=== PATIENT | female | born 1935 | race Caucasian/White ===

== ENCOUNTER 2016-07-25 16:44 | Emergency (ER) ==
[2016-07-25 16:49] VITALS: BP 124/73; TEMP 98.5; BMI 23.8
--- NOTE | 2016-07-25 17:23 | ED.PDOC ---
General ED Provider: Dr. SHARON RODRIGUEZ JR Chief Complaint: Chest Wall Injury/Pain Stated Complaint: patient states she lost her balance and fell. c/o pain to right anterior ribs. patient does not think that she hit anything, thinks she hurt herself when she twisted.[ End ]45 minutes feels constantine fell against her jewelry box 98.5 74 14 96% 124/73 10. cabg,stents x3, knee or. DEMENTIA , LOWER ELWHA. htn dm chol Time Seen by Physician: 17:22 Mode of Arrival: Walk-In Information Source: Patient Exam Limitations: No limitations Primary Care Provider: ASHTYN BERNAL Nursing and Triage Documentation Reviewed and Agree: No Review of Systems - Review Of Systems Constitutional: Reports: No symptoms Eyes: Reports: No symptoms Ears, Nose, Mouth, Throat: Reports: No symptoms Respiratory: Reports: No symptoms Cardiac: Reports: Chest pain (right lower ribs) GI: Reports: No symptoms : Reports: No symptoms Musculoskeletal: Reports: Other Skin: Reports: No symptoms Neurological: Reports: Cognitive dysfunction Endocrine: Reports: No symptoms Hematologic/Lymphatic: Reports: No symptoms All Other Systems: Other Past Medical History - Past Medical History Previously Healthy: No Endocrine: Reports: DM 2, Hypothyroid, Dyslipidemia Cardiovascular: Reports: Hypertension Respiratory: Reports: None Hematological: Reports: Unknown Gastrointestinal: Reports: Unknown, Other Genitourinary: Reports: None Neuro/Psych: Reports: None Musculoskeletal: Reports: Other Cancer: Reports: None Last Menstrual Period: n/a - Surgical History General Surgical History: Reports: CABG, Orthopedic (recent right knee), Unknown - Family History Family History: Reports: Unknown - Social History Smoking Status: Never smoker Hx Substance Use: No Alcohol Screening: None Physical Exam - Physical Exam Appearance: Well-appearing, Thin Pain Distress: Moderate Neck: Supple Respiratory: Airway patent Cardiovascular: RRR GI/: Soft Musculoskeletal: Normal strength, ROM intact, No edema, No calf tenderness ( right lower rib tenderness) Skin: Warm, Dry, Normal color Neurological: Sensation intact, Motor intact, Reflexes intact, Cranial nerves intact, Alert, Oriented Psychiatric: Affect appropriate, Mood appropriate Critical Care Note - Critical Care Note Total Time (mins): 0 Course - Course Orders, Labs, Meds: Orders Category Date Time Status RIBS, UNI W PA CHEST MIN 3V Stat RADS 02/04/17 17:23 Taken Vital Signs: Temp Pulse Resp BP Pulse Ox 07/25/16 16:45 98.5 F 74 14 124/73 96 Departure - Departure Time of Disposition: 18:30 Disposition: HOME SELF-CARE Discharge Problem: Chest wall pain Instructions: Rib Contusion (ED) Condition: Good Pt referred to PMD for follow-up: Yes Additional Instructions: follow up with PMD this week may call tomorrow for xray results may use home Binger for pain as prescribed Allergies/Adverse Reactions: Allergies cefprozil [From Cefzil] Adverse Reaction (Verified 07/25/16 16:47) ciprofloxacin [From Cipro] Adverse Reaction (Verified 07/25/16 16:47) ciprofloxacin HCl [From Cipro] Adverse Reaction (Verified 07/25/16 16:47) erythromycin base Adverse Reaction (Verified 07/25/16 16:47) levofloxacin [From Levaquin] Adverse Reaction (Verified 07/25/16 16:47) meloxicam Adverse Reaction (Verified 07/25/16 16:47) Penicillins Adverse Reaction (Verified 07/25/16 16:47) Sulfa (Sulfonamide Antibiotics) Adverse Reaction (Verified 07/25/16 16:47) Home Medications: Ambulatory Orders Aspirin [Aspirin Chewable] 325 mg PO DAILYWM 02/08/15 Buspirone HCl 10 mg PO BID 02/08/15 Clopidogrel Bisulfate [Plavix] 75 mg PO DAILY 02/08/15 Donepezil HCl [Aricept] 5 mg PO BEDTIME 02/08/15 Duloxetine HCl [Cymbalta] 60 mg PO DAILY 02/08/15 Glyburide/Metformin HCl [Glucovance 2.5-500 mg Tablet] 1 each PO DAILY 02/08/15 Isosorbide Mononitrate [Imdur] 60 mg PO DAILY 02/08/15 Levothyroxine Sodium [Synthroid] 75 mcg PO QDAC 02/08/15 Nebivolol HCl [Bystolic] 10 mg PO DAILY 02/08/15 Omeprazole [Prilosec] 20 mg PO QDAC 02/08/15 Pioglitazone HCl [Actos] 15 mg PO DAILY 02/08/15 Simvastatin [Zocor] 40 mg PO BEDTIME 02/08/15 Triamterene/Hydrochlorothiazid [Dyazide] 1 cap PO DAILY 02/08/15 Meclizine HCl [Antivert] 25 mg PO DAILY 03/07/15 Nitrofurantoin Monohyd/M-Cryst [Macrobid] 100 mg PO BEDTIME 03/07/15
--- NOTE | 2016-07-26 05:54 | DI ---
EXAM: PA chest and right rib series. HISTORY: Fall with right lateral rib pain. FINDINGS: The visualized bony structures are intact. There are multiple sternotomy wires. The car diac silhouette and pulmonary vasculature are within normal limits. The costophrenic angles are memo ar. No infiltrate or consolidation. No pneumothorax. There are calcified granulomas. Impression: No acute cardiopulmonary disease. Negative right rib series.
== END 2016-07-25 18:51 | disposition home or self-care (01) ==
LOC: ED 16:44
DX: S20.211A Contusion of right front wall of thorax, initial encounter (principal); R07.89 Other chest pain; W19.XXXA Unspecified fall, initial encounter
CPT/HCPCS: 99283

== ENCOUNTER 2024-05-01 13:10 | Inpatient (IN) ==
[2024-05-01 13:27] LABS: BASOPHILS % (AUTO) 0.3 % (0.0-3.0); HEMATOCRIT 37.5 % (37.0-47.0); HEMOGLOBIN 12.4 g/dl (12.0-16.0); IMMATURE GRANULOCYTE % (AUTO) 0.3 % (0.0-5.0); LYMPHOCYTES # (AUTO) 0.3 K/uL (0.60-3.4); LYMPHOCYTES % (AUTO) 4.9 (10.0-50.0); MEAN CORPUSCULAR HEMOGLOBIN 29.8 pg (27.0-31.0); MEAN CORPUSCULAR HGB CONC 33.1 (31.8-35.4); MEAN CORPUSCULAR VOLUME 90.1 fl (81.0-99.0); MONOCYTES # (AUTO) 0.9 K/uL (0.4-2.0); MONOCYTES % (AUTO) 15.2 (0-10); NEUTROPHILS # (AUTO) 4.6 K/ul (2.0-6.9); NEUTROPHILS % (AUTO) 79.3 % (42.2-75.2); PLATELET COUNT 116 10^3/uL (140-440); RED BLOOD COUNT 4.16 10^6/ul (4.20-5.40); WHITE BLOOD COUNT 5.86 K/ul (4.6-10.2)
--- NOTE | 2024-05-01 13:34 | ED.PDOC ---
General ED Provider: Dr. SHARON SKY MD Chief Complaint: Syncope Stated Complaint: Patient is an 88-year-old female that reported to the emergency department for 1 syncopal episode. Patient was brought from her assisted living facility via EMS to the emergency department. Patient was at a facilitated living center and EMS stated the patient had a short syncopal episode. They stated that this was witnessed by bystanders and they were able to help her down to the ground during her syncopal episode. They stated the patient did not fall or hit her head. This stated the patient was able to talk to them right after. They denied the patient having any pain. Patient denies anything making her symptoms worse or better. Patient denies any chest pain, shortness of breath, nausea, vomiting, diarrhea, dizziness, fever, headache, lymphadenopathy, sore throat, or any other acute symptoms not currently mentioned in HPI. Patient is alert. Patient has dementia at baseline. Patient's vital signs are stable. Time Seen by Provider: 05/01/24 13:12 Mode of Arrival: Walk-In Information Source: Patient and EMT Exam Limitations: No limitations Primary Care Provider: ASHTYN BERNAL Nursing and Triage Documentation Reviewed and Agree: Yes Does Patient Take Opioids?: No Is Patient Opioid Naive?: No What is Opioid Naive?: *Opioid Naive implies the patient is not already taking opioids or not chronically receiving opioids on a daily basis. *PRN dosing is not "usually" associated with tolerance. *Patients are at higher risk of over-sedation and aspiration. Is Patient Opioid Tolerant?: No What is Opioid Tolerant?: *Opioid Tolerance implies less than the expected response to an opioid. *Acquired tolerance is defined by the patient taking 60mg of oral morphine daily (or equianalgesic dose of another opioid) for 1 week or more. *Often associated with chronic pain. *May take more than usual dose to achieve desired pain control. Review of Systems Review Of Systems Constitutional: Reports Weakness Eyes: Reports No symptoms Ears, Nose, Mouth, Throat: Reports No symptoms Respiratory: Denies Cough or Shortness of Breath Cardiac: Denies Chest pain GI: Reports No symptoms; Denies Diarrhea, Nausea or Vomiting : Reports No symptoms Musculoskeletal: Reports No symptoms Skin: Reports No symptoms Neurological: Reports Other (syncopal episode x1) Endocrine: Reports No symptoms Hematologic/Lymphatic: Reports No symptoms All Other Systems: Reviewed and Negative PFSH Medical History Hypertension for years I10 - Essential (primary) hypertension (ICD-10) Hypothyroidism for years E03.9 - Hypothyroidism, unspecified (ICD-10) Depression for years F32.9 - Major depressive disorder, single episode, unspecified (ICD-10) Diabetes mellitus age 40's E11.9 - Type 2 diabetes mellitus without complications (ICD-10) Family History Mother Type 2 diabetes mellitus, Onset Age: 60 Surgical History History of joint surgery both knees 4 years ago Z98.890 - Other specified postprocedural states (ICD-10) Status post hysterectomy yeras ago Z90.710 - Acquired absence of both cervix and uterus (ICD-10) Female Reproductive History Menstrual Hx Hysterectomy: Yes Hx Tubal Ligation: No Physical Exam Physical Exam Appearance: Reports No pain distress and Well-nourished Ill-appearing: None Pain Distress: None Eyes: Reports TRINH, EOMI and Conjunctiva clear ENT: Reports Ears normal, Nose normal and Oropharynx normal Neck: Supple Respiratory: Reports Airway patent, Breath sounds clear, Breath sounds equal and Respirations nonlabored Cardiovascular: Reports RRR, Pulses normal, No rub and No murmur GI/: Reports Soft, Nontender, No masses, Bowel sounds normal and No Organomegaly Musculoskeletal: Reports Normal strength, ROM intact, No edema and No calf tenderness Skin: Reports Warm, Dry and Normal color Neurological: Reports Sensation intact, Motor intact, Cranial nerves intact, Alert and Other (Patient has dementia at baseline. She was able to tell us where she was at. Patient was alert.) Psychiatric: Reports Affect appropriate and Mood appropriate Course Course 05/01/24 13:20 05/01/24 13:20 Orders, Labs, Meds: Lab Review 05/01/24 05/01/24 13:20 13:30 WBC 5.86 RBC 4.16 L Hgb 12.4 Hct 37.5 MCV 90.1 MCH 29.8 MCHC 33.1 RDW Coeff of Anh 14.0 Plt Count 116 L Immature Gran % (Auto) 0.3 Neut % (Auto) 79.3 H Lymph % (Auto) 4.9 L [place] % (Auto) 15.2 H Eos % (Auto) 0.0 Baso % (Auto) 0.3 Neut # (Auto) 4.6 Lymph # (Auto) 0.3 L [place] # (Auto) 0.9 Eos # (Auto) 0.0 Baso # (Auto) 0.0 Immature Gran # (Auto) 0.0 Sodium 132.4 L Potassium 3.29 L Chloride 95.2 L Carbon Dioxide 27.7 Anion Gap 12.79 BUN 29.6 H Creatinine 1.26 Estimated GFR (MDRD) 40.00 BUN/Creatinine Ratio 23.49 Glucose 164.2 H Lactic Acid 2.30 H Calcium 8.00 L Total Bilirubin 0.48 AST 31.8 ALT 20.9 Alkaline Phosphatase 88.9 Troponin I < 0.012 NT-Pro-B Natriuret Pep 1570 H Total Protein 6.48 Albumin 3.57 Globulin 2.91 Albumin/Globulin Ratio 1.22 Influ A Molecular Assay Negative by naat Influ B Molecular Assay Negative by naat SARS CoV-2 RNA Rapid JAYA Negative Orders Category Date Time Status EKG-(ED ONLY) Stat CARDIO 05/01/24 13:12 Completed ED CHIEF COMPLIANCE OFFICER APPLIED .ONCE EMERGENCY 05/01/24 13:12 Active Rodriguez [ED CATHETER INSERTION AND CARE] .ONCE EMERGENCY 05/01/24 13:59 Active Orthostatic [ED ORTHOSTATIC VITAL SIGNS] .ONCE EMERGENCY 05/01/24 14:03 Active CBC W/ AUTO DIFF Stat LAB 05/01/24 13:20 Completed COMPREHENSIVE METABOLIC PANEL Stat LAB 05/01/24 13:20 Completed FLU A/B MOLECULAR Stat LAB 05/01/24 13:30 Completed LACTIC ACID Stat LAB 05/01/24 13:20 Completed NT-PROBNP(ED) Stat LAB 05/01/24 13:20 Completed SARS COV-2 RNA RAPID JAYA Stat LAB 05/01/24 13:30 Completed TROPONIN I Stat LAB 05/01/24 13:20 Completed URINALYSIS C & S IF INDICATED Stat LAB 05/01/24 13:39 Uncollected Gentamicin Sulfate 310 mg Meds 05/01/24 13:53 Active 0.9 % Sodium Chloride [Sodium Chloride 100Ml] 100 ml IV ONCE Potassium Chloride [Potassium Chloride 20 Meq/100 ml Meds 05/01/24 13:43 Active Premix] 20 meq in 100 ml IV ONCE Sodium Chloride 0.9% [Sodium Chloride] 1,000 ml Meds 05/01/24 13:43 Discontinued IV BOLUS Sodium Chloride 0.9% [Sodium Chloride] 1,000 ml Meds 05/01/24 13:54 Active IV BOLUS CHEST, 1V AP ONLY Stat RADS 05/01/24 13:[address] HEAD W/O CONTRAST Stat RADS 05/01/24 13:13 Taken Medications Generic Name Dose Route Start Last Admin Trade Name Freq PRN Reason Stop Dose Admin Potassium Chloride 20 meq in 100 mls @ 50 mls/hr 05/01/24 13:43 Potassium Chloride 20 Meq/100 Ml Premix IV 05/01/24 15:42 ONCE ONE Gentamicin Sulfate 310 mg/ 107.75 mls @ 83 mls/hr 05/01/24 13:53 Sodium Chloride IV 05/01/24 15:10 ONCE ONE Sodium Chloride 1,000 mls @ 250 mls/hr 05/01/24 13:54 Sodium Chloride IV 05/01/24 17:42 BOLUS ONE Discontinued Medications Generic Name Dose Route Start Last Admin Trade Name Freq PRN Reason Stop Dose Admin Sodium Chloride 1,000 mls @ 1,000 mls/hr 05/01/24 13:43 Sodium Chloride IV 05/01/24 14:42 BOLUS ONE Vital Signs: Temp Pulse Resp BP Pulse Ox 05/01/24 13:12 98.6 F 67 20 103/53 L 96 SHERRILL Risk Score SHERRILL Risk Score: Risk Score Odds of by 30D 0 0.1 (0.1-0.2) 1 0.3 (0.2-0.3) 2 0.4 (0.3-0.5) 3 0.7 (0.6-0.9) 4 1.2 (1.0-1.5) 5 2.2 (1.9-2.6) 6 3.0 (2.5-3.6) 7 4.8 (3.8-6.1) Physician Progress Note: Patient is an 88-year-old female that reported to the emergency department for 1 syncopal episode. Patient was brought from her assisted living facility via EMS to the emergency department. Patient was at a facilitated living center and EMS stated the patient had a short syncopal episode. They stated that this was witnessed by bystanders and they were able to help her down to the ground during her syncopal episode. They stated the patient did not fall or hit her head. This stated the patient was able to talk to them right after. They denied the patient having any pain. Patient denies anything making her symptoms worse or better. Patient denies any chest pain, shortness of breath, nausea, vomiting, diarrhea, dizziness, fever, headache, lymphadenopathy, sore throat, or any other acute symptoms not currently mentioned in HPI. Patient is alert. Patient has dementia at baseline. Patient's vital signs are stable. -Looking back at this patient's record it appears patient was just here on 04/29/2024 and was diagnosed with a UTI. Patient was sent home with a prescription for nitrofurantoin and told to follow-up with her primary care physician in the next 4 to 5 days. However due to patient's current condition patient was brought to the emergency department for syncopal episode. -Will order CT of head to rule out intracranial reasoning for syncopal episode. -Will order an EKG and CXR. -Will order baseline labs. Will order UA. -EKG shows normal sinus rhythm with a rate of 64 bpm. NC intervals 138 ms, QRS duration 76 ms, QTc 460 ms. Left axis deviation. No acute ST elevations noted. This was interpreted by the ER physician. -Patient does not have tachycardia however she is on a beta-gilmar and it appears she has a high neutrophil count with a lactic acidosis (2.3. -Will give the patient IV normal saline 1 L bolus for dehydration and give the patient IV gentamicin 310 mg for the UTI. -Will treat the patient's hypokalemia with IV potassium 20 mEq. -Troponin is negative. -Chest x-ray shows no acute cardiopulmonary disease. This was interpreted by the ER physician. -CT of the head shows no acute intercranial bleeding or pathology. -Will contact hospitalist here at [facility] for admission for complicated UTI with outpatient failure of treatment. Also diagnosis of syncopal episode. -Will place a Rodriguez catheter and the patient as it is unsafe for the patient to get up and move around while in the hospital. -([id number]) spoke to hospitalist, RUIZ Boston, at [facility] and discussed the patient's syncopal episode with UTI that is being treated with antibiotics. Of given the current treatment of IV gentamicin 5 mg/kg dose once in the ER and 20 mEq of potassium for hypokalemia. I also discussed the volume of fluids that we have given thus far. She requested that we do orthostatic vital signs before the patient got too much fluids however she was agreeable to accept this patient for observation at the current time. Patient stable at time of admissions for observation. Discharge Plan Discharge Patient Disposition: PLACED OBSERVATION Discharge Problem: Generalized weakness, Complicated urinary tract infection Syncope Qualifiers: Syncope type: unspecified Qualified Code(s): R55 - Syncope and collapse Dementia Qualifiers: Dementia type: unspecified type Dementia severity: unspecified severity D ementia behavioral or psychological symptom: unspecified whether behavioral, psychotic, or mood disturbance or anxiety Qualified Code(s): F03.90 - Unspecified dementia, unspecified severity, without behavioral disturbance, psychotic disturbance, mood disturbance, and anxiety Did you review [place] [employer] for ALL controlled substances?: Not Applicable ED Provider: SHARON SKY Condition: Stable
[2024-05-01 13:39] LABS: ALANINE AMINOTRANSFERASE 20.9 U/L (0-35); ALBUMIN 3.57 g/dL (3.5-5.0); ALKALINE PHOSPHATASE 88.9 U/L (53-141); ASPARTATE AMINO TRANSFERASE 31.8 U/L (14-36); BILIRUBIN,TOTAL 0.48 mg/dL (0.2-1.3); BLOOD UREA NITROGEN 29.6 mg/dL (7-17); CARBON DIOXIDE 27.7 mmol/L (22-30.0); CHLORIDE 95.2 mmol/L (98-107); CREATININE 1.26 mg/dL (0.60-1.30); GLUCOSE 164.2 mg/dL (74-106); POTASSIUM 3.29 mmol/L (3.5-5.1); SODIUM 132.4 mmol/L (134.5-145); TOTAL PROTEIN 6.48 g/dL (6.3-8.2)
[2024-05-01] MEDS ORDERED: MAXIPIME 1 GM VIAL 1 GM in SODIUM CHLORIDE 50 ML IV ONE (13:43)
[2024-05-01 13:49] LABS: MOLECULAR FLU A NEGATIVE BY NAAT (NEGATIVE); MOLECULAR FLU B NEGATIVE BY NAAT (NEGATIVE); SARS COV-2 RNA RAPID NAAT NEGATIVE (NEGATIVE)
[2024-05-01 13:51] LABS: TROPONIN I < 0.012 ng/ml (0.0000-0.120)
[2024-05-01] MEDS: SODIUM CHLORIDE IV ONE (14:06)
[2024-05-01] MEDS: GENTAMICIN SULFATE IV ONE (14:06)
[2024-05-01] MEDS: SODIUM CHLORIDE 1,000 ML IV ONE ×2 (14:07→14:27)
[2024-05-01 14:21] LABS: BILIRUBIN,URINE 1+ (NEGATIVE); CLARITY,URINE Clear (CLEAR); COLOR,URINE Dark (YELLOW); GLUCOSE, URINE (UA) Negative (NEGATIVE); KETONES,URINE 1+ (NEGATIVE); LEUKOCYTE ESTERASE ,URINE Negative (NEGATIVE); NITRITE,URINE Negative (NEGATIVE); PH,URINE 5.5 (5-9); PROTEIN,URINE 2+ (NEGATIVE); URINE, BLOOD 1+ (NEGATIVE); UROBILINOGEN,URINE 0.2 (0.2)
[2024-05-01] MEDS: POTASSIUM CHLORIDE 20 MEQ/100 ML PREMIX 20 MEQ/100 ML BAG IV ONE (14:27)
[2024-05-01 14:29] LABS: URINE WBC, MICROSCOPIC 0-2 (0-2)
[2024-05-01 14:30] LABS: AMORPHOUS SEDIMENT,UR TRACE (NOT PRESENT); BACTERIA,URINE 1+ (NOT PRESENT); HYALINE CASTS, URINE 0-2 (NOT PRESENT); MUCUS,URINE TRACE (NOT PRESENT)
--- NOTE | 2024-05-01 14:33 | CT ---
EXAMINATION: HEAD CT WITHOUT CONTRAST HISTORY: Syncope TECHNIQUE: Noncontrast CT of the brain was performed with images acquired from skull base to vertex. Sagittal and coronal reformatted images were provided. CT dose reduction techniques performed: Yes. COMPARISON: CT head 10/29/2023 FINDINGS: No hemorrhage, mass, or acute infarction. No skull fracture.Chronic microvascular disease and brain a trophy. Paranasal sinuses and mastoid air cells clear. IMPRESSION: No acute intracranial abnormality. All CT scans are performed using dose optimization techniques as appropriate to the performed exam an d include at least one of the following: Automated exposure control, adjustment of the mA and/or kV according t o size, and the use of iterative reconstruction technique.
--- NOTE | 2024-05-01 14:41 | DI ---
EXAM: CHEST RADIOGRAPH TECHNIQUE: Single frontal chest radiograph. HISTORY: Syncope. COMPARISON: 10/29/2023. FINDINGS: Lungs/Pleura: Slight interstitial prominence. Mild streaky markings in the left lung base may be due to scarring or atelectasis. No sizable effusion or focal infiltrate. Heart: The heart size is normal. Bones: Bones are osteopenic. Other: Median sternotomy. Note is again made of breakage of the upper 2 wires. Cholecystectomy. IMPRESSION: 1. Chronic changes.
[2024-05-01 15:51] VITALS: BMI 25.0
[2024-05-01] MEDS: SODIUM CHLORIDE 1,000 ML IV SCH (16:13)
[2024-05-01] MEDS ORDERED: ZOFRAN 4 MG/2 ML IVP PRN (16:41)
[2024-05-01] MEDS ORDERED: ANTIVERT PO PRN (16:43)
[2024-05-01] MEDS ORDERED: NON-FORMULARY MEDICATION (Cetirizine [24hour Allergy] 10 mg tablet) PO SCH (16:45)
[2024-05-01] MEDS: CARAFATE PO SCH (17:28)
[2024-05-01] MEDS: TYLENOL PO PRN (17:53)
[2024-05-01] MEDS: AZACTAM 1 GM in SODIUM CHLORIDE 50 ML IV SCH (18:18)
[2024-05-01] MEDS: MAGNESIUM SULFATE 1 GM/100 ML D5W 1 GM/100 ML BAG IV ONE (19:10)
[2024-05-01] MEDS: ULTRAM PO SCH (20:22)
[2024-05-01] MEDS: SEROQUEL PO SCH (20:22)
[2024-05-01] MEDS: ZOCOR PO SCH (20:22)
[2024-05-01] MEDS: PROTONIX PO SCH (20:22)
[2024-05-01] MEDS: COLESTID PO SCH (20:22)
[2024-05-01] MEDS: HUMALOG (10 ML VIAL) SUBCUT PRN (20:51)
[2024-05-02 05:05] LABS: HEMATOCRIT 35.6 % (37.0-47.0); HEMOGLOBIN 11.9 g/dl (12.0-16.0); IMMATURE GRANULOCYTE % (AUTO) 0.3 % (0.0-5.0); LYMPHOCYTES # (AUTO) 0.3 K/uL (0.60-3.4); LYMPHOCYTES % (AUTO) 5.4 (10.0-50.0); MEAN CORPUSCULAR HEMOGLOBIN 29.3 pg (27.0-31.0); MEAN CORPUSCULAR HGB CONC 33.4 (31.8-35.4); MEAN CORPUSCULAR VOLUME 87.7 fl (81.0-99.0); MONOCYTES # (AUTO) 1.2 K/uL (0.4-2.0); MONOCYTES % (AUTO) 18.9 (0-10); NEUTROPHILS # (AUTO) 4.7 K/ul (2.0-6.9); NEUTROPHILS % (AUTO) 75.4 % (42.2-75.2); PLATELET COUNT 118 10^3/uL (140-440); RED BLOOD COUNT 4.06 10^6/ul (4.20-5.40); WHITE BLOOD COUNT 6.29 K/ul (4.6-10.2)
[2024-05-02] MEDS: SYNTHROID PO SCH (05:05)
[2024-05-02 05:24] LABS: ALANINE AMINOTRANSFERASE 18.2 U/L (0-35); ALBUMIN 3.29 g/dL (3.5-5.0); ALKALINE PHOSPHATASE 81.4 U/L (53-141); ASPARTATE AMINO TRANSFERASE 34.5 U/L (14-36); BILIRUBIN,TOTAL 0.48 mg/dL (0.2-1.3); BLOOD UREA NITROGEN 19.4 mg/dL (7-17); CALCIUM 7.9 mg/dL (8.4-10.2); CARBON DIOXIDE 28.2 mmol/L (22-30.0); CHLORIDE 95.8 mmol/L (98-107); CREATININE 0.88 mg/dL (0.60-1.30); GLUCOSE 141.5 mg/dL (74-106); POTASSIUM 3.09 mmol/L (3.5-5.1); SODIUM 129.6 mmol/L (134.5-145); TOTAL PROTEIN 6.21 g/dL (6.3-8.2)
[2024-05-02] MEDS: INVANZ 1 GM in SODIUM CHLORIDE 50 ML IV SCH (08:50)
[2024-05-02] MEDS ORDERED: FERROUS SULFATE PO SCH (09:00)
[2024-05-02] MEDS ORDERED: DYAZIDE PO SCH (09:00)
--- NOTE | 2024-05-02 09:16 | PCM ---
Date of Service Date Seen by Provider: 05/02/24 Time Seen by Provider: 08:30 Admit Day/Time Admission Date: 05/01/24 Admission Time: 14:08 Reason for Admission Chief Complaint: COMPLICATED UTI, SYNCOPE Hospital Provider Hospital Provider: FORTINO JUARES PA-C, [facility] Primary Care Physician Primary Care Physician: ASHTYN BERNAL History of Present Illness History of Present Illness: Patient is a 88 year old from [facility] with pmhx of hypertension, dementia, CABG, hypothyroidism, GERD, hyperlipidemia who presented for witnessed syncopal episode. No seizurelike activity reported. She was assisted down to the floor and did not obtain any injuries reportedly. No n/v, incontinence noted. Patient was seen in the ER on 04/29 and diagnosed with UTI, discharged home on macrobid. Patient has many allergies to antibiotics. In the ER this visit patient's cxr and ct head were unremarkable. Labs revealed low potassium and sodium. Urine culture from recent visit was still pending but growing gram negative organisms. Patient admitted to [facility] for syncope, UTI. Patient's urine culture from 04/29 resulted today in ESBL positive e coli. She is oriented to self only. She was able to eat some breakfast today. Per nursing report, family is requesting longterm placement. ROS limited due to patient's dementia. Case Discussed With Case Discussed With: Patient's case was discussed with the ER Physicians, Dr. Zamora. [facility] Medical History Hypertension for years I10 - Essential (primary) hypertension (ICD-10) Hypothyroidism for years E03.9 - Hypothyroidism, unspecified (ICD-10) Depression for years F32.9 - Major depressive disorder, single episode, unspecified (ICD-10) Diabetes mellitus age 40's E11.9 - Type 2 diabetes mellitus without complications (ICD-10) Surgical History History of joint surgery both knees 4 years ago Z98.890 - Other specified postprocedural states (ICD-10) Status post hysterectomy yeras ago Z90.710 - Acquired absence of both cervix and uterus (ICD-10) Family History Mother Type 2 diabetes mellitus, Onset Age: 60 Allergies Allergies Allergy/AdvReac Type Severity Reaction Status Date / Time cefprozil (From Cefzil) AdvReac Unknown Verified 05/01/24 13:35 ciprofloxacin (From Cipro) AdvReac Unknown Verified 05/01/24 13:35 ciprofloxacin HCl (From AdvReac Unknown Verified 05/01/24 13:35 Cipro) erythromycin base AdvReac Unknown Verified 05/01/24 13:35 levofloxacin (From Levaquin) AdvReac Unknown Verified 05/01/24 13:35 meloxicam AdvReac Unknown Verified 05/01/24 13:35 Penicillins AdvReac Unknown Verified 05/01/24 13:35 Sulfa (Sulfonamide AdvReac Unknown Verified 05/01/24 13:35 Antibiotics) Current Medications Home Medications duloxetine 60 mg capsule,delayed release (Cymbalta) 60 mg PO DAILY 02/08/15 [History Confirmed 05/01/24 Last Taken Unknown] isosorbide mononitrate 30 mg tablet,extended release 24 hr 30 mg PO DAILY 02/08/15 [History Confirmed 05/01/24 Last Taken Unknown] levothyroxine 75 mcg tablet (Synthroid) 75 mcg PO QDAC 02/08/15 [History Confirmed 05/01/24 Last Taken Unknown] simvastatin 40 mg tablet 40 mg PO BEDTIME 02/08/15 [History Confirmed 05/01/24 Last Taken Unknown] triamterene 37.5 mg-hydrochlorothiazide 25 mg capsule 1 cap PO DAILY 02/08/15 [History Confirmed 05/01/24 Last Taken Unknown] donepezil 5 mg tablet (Aricept) 5 mg PO QDAY 01/08/21 [History Confirmed 05/01/24 Last Taken Unknown] acetaminophen 500 mg tablet (Tylenol Extra Strength) 1,000 mg PO TID PRN pain 10/27/23 [History Confirmed 05/01/24 Last Taken Unknown] alendronate 70 mg tablet (Fosamax) 70 mg PO WEEKLY 10/27/23 [History Confirmed 04/29/24 Last Taken Unknown] carbamide peroxide 6.5 % ear drops (Clearcanal Earwax Softener) 5 drp BOTHEARS DAILY PRN wax 10/27/23 [History Confirmed 05/01/24 Last Taken Unknown] carvedilol 6.25 mg tablet 6.25 mg PO ONCE 10/27/23 [History Confirmed 05/01/24 Last Taken Unknown] colestipol 1 gram tablet (Colestid) 1 g PO BID 10/27/23 [History Confirmed 05/01/24 Last Taken Unknown] docusate sodium 100 mg capsule (Col-Rite) 100 mg PO DAILY 10/27/23 [History Confirmed 05/01/24 Last Taken Unknown] ferrous sulfate 325 mg (65 mg iron) tablet 325 mg PO DAILY 10/27/23 [History Confirmed 05/01/24 Last Taken Unknown] fluticasone propionate 50 mcg/actuation nasal spray,suspension (24 Hour Allergy Relief) 2 spray intranasal ONCE 10/27/23 [History Confirmed 05/01/24 Last Taken Unknown] meclizine 25 mg tablet 25 mg PO DAILY PRN dizziness #30 tabs 10/27/23 [Rx Confirmed 05/01/24 Last Taken Unknown] pantoprazole 40 mg tablet,delayed release 40 mg PO BID 10/27/23 [History Confirmed 05/01/24 Last Taken Unknown] potassium chloride 10 mEq tablet,extended release 10 meq PO DAILY 10/27/23 [History Confirmed 05/01/24 Last Taken Unknown] psyllium husk (aspartame) 3.4 gram oral powder packet (Daily Fiber (psyllium- aspartame)) 1 packet PO DAILY 10/27/23 [History Confirmed 05/01/24 Last Taken Unknown] quetiapine 50 mg tablet 50 mg PO BEDTIME 10/27/23 [History Confirmed 05/01/24 Last Taken Unknown] tramadol 50 mg tablet 50 mg PO BID 10/27/23 [History Confirmed 05/01/24 Last Taken Unknown] metformin 500 mg tablet 500 mg PO 2XD 04/29/24 [History Confirmed 05/01/24 Last Taken Unknown] nitrofurantoin monohydrate/macrocrystals 100 mg capsule (Macrobid) 100 mg PO BID #14 caps 04/29/24 [Rx Confirmed 05/01/24 Last Taken Unknown] bupropion HCl 150 mg 24 hr tablet, extended release 150 mg PO DAILY 05/01/24 [History Confirmed 05/01/24 Last Taken Unknown] sucralfate 100 mg/mL oral suspension 10 ml PO Q6H PRN indigestion 05/01/24 [History Confirmed 05/01/24 Last Taken Unknown] Home Acetaminophen (Acetaminophen 325 Mg Tablet) 650 mg PO Q4H PRN PRN Reason: Mild Pain Last Admin: 05/02/24 12:03 Dose: 650 mg Bupropion HCl (Bupropion Hcl 150 Mg Tab.Er.24h) 150 mg PO DAILY [facility] Last Admin: 05/02/24 09:30 Dose: 150 mg Carvedilol (Carvedilol 6.25 Mg Tablet) 6.25 mg PO DAILYWM2 [facility] Last Admin: 05/02/24 09:19 Dose: 6.25 mg Colestipol HCl (Colestipol Hcl 1 Gm Tablet) 1 gm PO BID [facility] Last Admin: 05/02/24 09:29 Dose: 1 gm Docusate Sodium (Docusate Sodium 100 Mg Capsule) 100 mg PO DAILY [facility] Last Admin: 05/02/24 09:31 Dose: 100 mg Donepezil HCl (Donepezil Hcl 10 Mg Tablet) 5 mg PO DAILY [facility] Last Admin: 05/02/24 09:32 Dose: 5 mg Duloxetine HCl (Duloxetine Hcl 30 Mg Capsule.) 60 mg PO DAILY [facility] Last Admin: 05/02/24 09:30 Dose: 60 mg Ferrous Sulfate (Ferrous Sulfate 324 Mg Tablet.Dr) 324 mg PO DAILY [facility] Last Admin: 05/02/24 10:19 Dose: 324 mg Sodium Chloride (Sodium Chloride) 1,000 mls @ 75 mls/hr IV .[id number] [facility] Last Admin: 05/02/24 08:05 Dose: 75 mls/hr Ertapenem 1 gm/ Sodium (Chloride) 50 mls @ 100 mls/hr IV DAILY [facility] Stop: 05/05/24 08:59 Last Admin: 05/02/24 08:50 Dose: 100 mls/hr Insulin Human Lispro (Insulin Lispro 100 Unit/Ml (10 Ml Vial)) 0 unit SUBCUT PRN PRN; Protocol PRN Reason: Hyperglycemia Last Admin: 05/01/24 20:51 Dose: 2 unit Isosorbide Mononitrate (Isosorbide Mononitrate 30 Mg Tab.Er.24h) 30 mg PO DAILY [facility] Last Admin: 05/02/24 09:31 Dose: 30 mg Levothyroxine Sodium (Levothyroxine Sodium 75 Mcg Tablet) 75 mcg PO QDAC2 [facility] Last Admin: 05/02/24 05:05 Dose: 75 mcg Meclizine HCl (Meclizine Hcl 25 Mg Tablet) 25 mg PO DAILY PRN PRN Reason: Dizziness Ondansetron HCl (Ondansetron Hcl/Pf 4 Mg/2 Ml Sdv) 4 mg IVP Q6H PRN PRN Reason: Nausea / Vomiting Pantoprazole Sodium (Pantoprazole Sodium 40 Mg Tablet.Dr) 40 mg PO BIDAC2 [facility] Last Admin: 05/02/24 09:21 Dose: 40 mg Pioglitazone HCl (Pioglitazone Hcl 15 Mg Tablet) 15 mg PO DAILY [facility] Last Admin: 05/02/24 09:31 Dose: 15 mg Quetiapine Fumarate (Quetiapine Fumarate 25 Mg Tablet) 50 mg PO BEDTIME [facility] Last Admin: 05/01/24 20:22 Dose: 50 mg Simvastatin (Simvastatin 40 Mg Tablet) 40 mg PO BEDTIME [facility] Last Admin: 05/01/24 20:22 Dose: 40 mg Sucralfate (Sucralfate Susp 1 Gm/10 Ml Cup) 1 gm PO Q6H [facility] Last Admin: 05/02/24 11:09 Dose: 1 gm Tramadol HCl (Tramadol Hcl 50 Mg Tablet) 50 mg PO BID [facility] Last Admin: 05/02/24 09:32 Dose: 50 mg Discontinued Medications Sodium Chloride (Sodium Chloride) 1,000 mls @ 1,000 mls/hr IV BOLUS ONE Stop: 05/01/24 14:42 Last Admin: 05/01/24 14:27 Dose: Not Given Potassium Chloride (Potassium Chloride 20 Meq/100 Ml Premix) 20 meq in 100 mls @ 50 mls/hr IV ONCE ONE Stop: 05/01/24 15:42 Last Admin: 05/01/24 14:27 Dose: 50 mls/hr Gentamicin Sulfate 310 mg/ (Sodium Chloride) 107.75 mls @ 83 mls/hr IV ONCE ONE Stop: 05/01/24 15:10 Last Admin: 05/01/24 14:41 Dose: Not Given Sodium Chloride (Sodium Chloride) 1,000 mls @ 250 mls/hr IV BOLUS ONE Stop: 05/01/24 17:42 Last Admin: 05/01/24 14:07 Dose: 250 mls/hr Aztreonam 1 gm/ Sodium (Chloride) 50 mls @ 75 mls/hr IV Q8HR [place] Stop: 05/04/24 15:59 Last Admin: 05/02/24 05:05 Dose: 75 mls/hr Magnesium Sulfate/Dextrose (Magnesium Sulfate 1 Gm/100 Ml D5w) 1 gm in 100 mls @ 100 mls/hr IV ONCE ONE Stop: 05/01/24 18:01 Last Admin: 05/01/24 19:10 Dose: 100 mls/hr Non-Formulary Medication (Cetirizine [24hour Allergy]) 10 mg PO ONCE [place] Pantoprazole Sodium (Pantoprazole Sodium 40 Mg Tablet.Dr) 40 mg PO BID [place] Last Admin: 05/01/24 20:22 Dose: 40 mg Potassium Chloride (Potassium Chloride 20 Meq Tab) 40 meq PO ONCE ONE Stop: 05/02/24 08:07 Last Admin: 05/02/24 09:20 Dose: 40 meq Opioid Naive vs. Tolerant Does Patient Take Opioids?: No Is Patient Opioid Naive?: Yes What is Opioid Naive?: *Opioid Naive implies the patient is not already taking opioids or not chronically receiving opioids on a daily basis. *PRN dosing is not "usually" associated with tolerance. *Patients are at higher risk of over-sedation and aspiration. Is Patient Opioid Tolerant?: No What is Opioid Tolerant?: *Opioid Tolerance implies less than the expected response to an opioid. *Acquired tolerance is defined by the patient taking 60mg of oral morphine daily (or equianalgesic dose of another opioid) for 1 week or more. *Often associated with chronic pain. *May take more than usual dose to achieve desired pain control. Review of Systems Cardiovascular: Denies Chest pain Respiratory: Denies Shortness of air Gastrointestinal: Denies Vomiting or Abdominal pain Physical examination Most Recent Vital Signs: Most Recent Vital Signs Temperature 98.8 F 05/02/24 05:03 Temperature Source Temporal Artery Scan 05/02/24 05:03 Temperature Source Infrared 05/01/24 13:12 Pulse Rate 96 05/02/24 07:45 Respiratory Rate 20 05/02/24 07:45 Blood Pressure 125/65 05/02/24 05:03 Blood Pressure Mean 85 05/02/24 05:03 Blood Pressure Right Arm 130/60 05/01/24 15:18 Blood Pressure Location Left Arm 05/02/24 05:03 Blood Pressure Position Supine 05/02/24 05:03 O2 Sat by Pulse Oximetry 91 L 05/02/24 05:03 Oxygen Delivery Method Room Air 05/02/24 09:00 Height 5 ft 3 in 05/01/24 15:18 Weight 64 kg 05/01/24 15:18 Telemetry Type Remote Telemetry 05/02/24 06:57 Telemetry Monitoring Continues 05/02/24 06:57 Telemetry Heart Rate 95 05/02/24 06:57 EKG MI Interval 0.14 05/02/24 06:57 EKG QRS Interval 0.06 05/02/24 06:57 Telemetry Strip Reading NSR 05/02/24 06:57 Appearance: Positive No Apparent Distress and Other (+Awakes easily, oriented to person only. Follows commands but requires a lot of direction and repetition of command) Skin: Positive [place] and Warm; Negative Rashes HEENT: Positive Normocephalic and Atraumatic Neck: Positive Supple and Midline Trachea Chest/Lungs: Positive Clear to Auscultation Bilaterally; Negative Rales, Rhonci or Wheezes Heart: Positive RRR GI/: Positive Soft, Nontender, Bowel Sounds Normal and No Distention Extremities: Negative Edema Neurological: Positive Cranial Nerves Intact, Alert and Disorinted Labs This Visit Labs This Visit: Labs This Visit 05/01/24 05/01/24 05/01/24 13:20 13:30 14:15 WBC 5.86 RBC 4.16 L Hgb 12.4 Hct 37.5 MCV 90.1 MCH 29.8 MCHC 33.1 RDW Coeff of Anh 14.0 Plt Count 116 L Immature Gran % (Auto) 0.3 Neut % (Auto) 79.3 H Lymph % (Auto) 4.9 L [place] % (Auto) 15.2 H Eos % (Auto) 0.0 Baso % (Auto) 0.3 Neut # (Auto) 4.6 Lymph # (Auto) 0.3 L [place] # (Auto) 0.9 Eos # (Auto) 0.0 Baso # (Auto) 0.0 Immature Gran # (Auto) 0.0 Sodium 132.4 L Potassium 3.29 L Chloride 95.2 L Carbon Dioxide 27.7 Anion Gap 12.79 BUN 29.6 H Creatinine 1.26 Estimated GFR (MDRD) 40.00 BUN/Creatinine Ratio 23.49 Glucose 164.2 H Lactic Acid 2.30 H Calcium 8.00 L Magnesium 1.88 Total Bilirubin 0.48 AST 31.8 ALT 20.9 Alkaline Phosphatase 88.9 Troponin I < 0.012 NT-Pro-B Natriuret Pep 1570 H Total Protein 6.48 Albumin 3.57 Globulin 2.91 Albumin/Globulin Ratio 1.22 TSH Urine Color Dark Urine Clarity Clear Urine pH 5.5 Ur Specific [place] 1.025 Urine Protein 2+ H Urine Glucose (UA) Negative Urine Ketones 1+ H Urine Blood 1+ H Urine Nitrite Negative Urine Bilirubin 1+ H Urine Urobilinogen 0.2 Ur Leukocyte Esterase Negative Urine Microscopic RBC 10-20 Urine Microscopic WBC 0-2 Ur Squamous Epith Cells 2-5 Amorphous Sediment Trace Urine Bacteria 1+ Hyaline Casts 0-2 Fine Granular Casts 5-10 Urine Mucus Trace Influ A Molecular Assay Negative by naat Influ B Molecular Assay Negative by naat SARS CoV-2 RNA Rapid JAYA Negative 05/01/24 05/02/24 05/02/24 17:04 05:00 05:33 WBC 6.29 RBC 4.06 L Hgb 11.9 L Hct 35.6 L MCV 87.7 MCH 29.3 MCHC 33.4 RDW Coeff of Anh 14.0 Plt Count 118 L Immature Gran % (Auto) 0.3 Neut % (Auto) 75.4 H Lymph % (Auto) 5.4 L [place] % (Auto) 18.9 H Eos % (Auto) 0.0 Baso % (Auto) 0.0 Neut # (Auto) 4.7 Lymph # (Auto) 0.3 L [place] # (Auto) 1.2 Eos # (Auto) 0.0 Baso # (Auto) 0.0 Immature Gran # (Auto) 0.0 Sodium 129.6 L Potassium 3.09 L Chloride 95.8 L Carbon Dioxide 28.2 Anion Gap 8.69 BUN 19.4 H Creatinine 0.88 Estimated GFR (MDRD) 61.00 BUN/Creatinine Ratio 22.04 Glucose 141.5 H Lactic Acid Calcium 7.90 L Magnesium 2.01 Total Bilirubin 0.48 AST 34.5 ALT 18.2 Alkaline Phosphatase 81.4 Troponin I NT-Pro-B Natriuret Pep Total Protein 6.21 L Albumin 3.29 L Globulin 2.92 Albumin/Globulin Ratio 1.12 TSH 2.560 Urine Color Urine Clarity Urine pH Ur Specific [place] Urine Protein Urine Glucose (UA) Urine Ketones Urine Blood Urine Nitrite Urine Bilirubin Urine Urobilinogen Ur Leukocyte Esterase Urine Microscopic RBC Urine Microscopic WBC Ur Squamous Epith Cells Amorphous Sediment Urine Bacteria Hyaline Casts Fine Granular Casts Urine Mucus Influ A Molecular Assay Influ B Molecular Assay SARS CoV-2 RNA Rapid JAYA Microbiology This Visit 05/01/24 14:15 Urine,Random Urine Culture - Preliminary Imaging Imaging: EXAMINATION: HEAD CT WITHOUT CONTRAST HISTORY: Syncope TECHNIQUE: Noncontrast CT of the brain was performed with images acquired from skull base to vertex. Sagittal and coronal reformatted images were provided. CT dose reduction techniques performed: Yes. COMPARISON: CT head 10/29/2023 FINDINGS:No hemorrhage, mass, or acute infarction. No skull fracture.Chronic microvascular disease and brain atrophy. Paranasal sinuses and mastoid air cells clear. IMPRESSION: No acute intracranial abnormality. EXAM: CHEST RADIOGRAPH TECHNIQUE: Single frontal chest radiograph. HISTORY: Syncope. COMPARISON: 10/29/2023. FINDINGS: Lungs/Pleura: Slight interstitial prominence. Mild streaky markings in the left lung base may be due to scarring or atelectasis. No sizable effusion or focal infiltrate. Heart: The heart size is normal. Bones: Bones are osteopenic. Other: Median sternotomy. Note is again made of breakage of the upper 2 wires. Cholecystectomy. IMPRESSION: 1. Chronic changes. Review Statement Review Statement: I have independently reviewed and interpreted the labs/EKGs/imaging that were ordered by the ER provider. I have reviewed all outside records that are available currently in our EMR including imaging/notes/labs from previous visits. Plan Plan: 1. Syncope - No changes on EKG. Labs overall unremarkable except for mild electrolyte disturbances. Tele. Check echo. CT head negative. 2. Hypokalemia - Replaced 3. Hypomagnesemia, mild - Replaced 4. Resistant UTI due to ESBL positive E coli - From culture on 04/29. Treated outpt with macrobid. Will treat with invanz. Contact precautions. 5. Hyponatremia - worsened today. Cont NS. Hold hctz. 6. Hypothyroidism - Cont home meds, TSH normal 7. Hypertension - Cont home meds except triamterene/hctz 8. Dementia - Cont home meds 9. GERD - Cont home meds 10. DMT2 - Hold metformin. Diabetic diet. Accuchecks achs. Humalog ss. DVT Prophylaxis: Holding lovenox due to mildly low platelets Time Spent: Greater than 80 minutes spent with patient, 50% of the time spent with this patient was devoted to counseling and coordination of care. [facility] minutes spent discussing advance care planning. Admit to: Made inpatient today Discussed Plan of Care with Dr. Jamal Samson. Medications Medication Orders: Medications Ordered Category Date Time Status Acetaminophen [Tylenol] Meds 05/01/24 16:41 Active 650 mg PO Q4H PRN Bupropion HCl [Wellbutrin Xl] Meds 05/02/24 09:00 Active 150 mg PO DAILY Carvedilol [Coreg] Meds 05/02/24 07:30 Active 6.25 mg PO DAILYWM2 Colestipol HCl [Colestid] Meds 05/01/24 21:00 Active 1 gm PO BID Docusate Sodium [Colace] Meds 05/02/24 09:00 Active 100 mg PO DAILY Donepezil HCl [Aricept] Meds 05/02/24 09:00 Active 5 mg PO DAILY Duloxetine HCl [Cymbalta] Meds 05/02/24 09:00 Active 60 mg PO DAILY Ertapenem Sodium [Invanz] 1 gm Meds 05/02/24 09:00 Active 0.9 % Sodium Chloride [Sodium Chloride] 50 ml IV DAILY Ferrous Sulfate Meds 05/02/24 09:00 Active 325 mg PO DAILY Insulin Lispro [Humalog (10 ml Vial)] Meds 05/01/24 20:25 Active See Protocol SUBCUT PRN PRN Isosorbide Mononitrate [Imdur] Meds 05/02/24 09:00 Active 30 mg PO DAILY Levothyroxine Sodium [Synthroid] Meds 05/02/24 06:00 Active 75 mcg PO QDAC2 Meclizine HCl [Antivert] Meds 05/01/24 16:43 Active 25 mg PO DAILY PRN Ondansetron HCl/Pf [Zofran 4 mg/2 ml] Meds 05/01/24 16:41 Active 4 mg IVP Q6H PRN Pantoprazole Sodium [Protonix] Meds 05/02/24 07:00 Active 40 mg PO BIDAC2 Pioglitazone HCl [Actos] Meds 05/02/24 09:00 Active 15 mg PO DAILY Quetiapine Fumarate [Seroquel] Meds 05/01/24 21:00 Active 50 mg PO BEDTIME Simvastatin [Zocor] Meds 05/01/24 21:00 Active 40 mg PO BEDTIME Sodium Chloride 0.9% [Sodium Chloride] 1,000 ml Meds 05/01/24 16:30 Active IV 75 mls/hr Sucralfate Susp [Carafate] Meds 05/01/24 17:00 Active 1 gm PO Q6H Tramadol HCl [Ultram] Meds 05/01/24 21:00 Active 50 mg PO BID
[2024-05-02] MEDS: COREG PO SCH (09:19)
[2024-05-02] MEDS: K-DUR PO ONE ×2 (09:20→20:24)
[2024-05-02] MEDS: PROTONIX PO SCH (09:21)
[2024-05-02] MEDS: WELLBUTRIN XL PO SCH (09:30)
[2024-05-02] MEDS: CYMBALTA PO SCH (09:30)
[2024-05-02] MEDS: COLACE PO SCH (09:31)
[2024-05-02] MEDS: ACTOS PO SCH (09:31)
[2024-05-02] MEDS: IMDUR PO SCH (09:31)
[2024-05-02] MEDS: ARICEPT PO SCH (09:32)
[2024-05-02] MEDS: FERROUS SULFATE PO SCH (10:19)
[2024-05-02 20:16] LABS: BLOOD UREA NITROGEN 13.9 mg/dL (7-17); CALCIUM 7.6 mg/dL (8.4-10.2); CARBON DIOXIDE 24.1 mmol/L (22-30.0); CHLORIDE 97.8 mmol/L (98-107); CREATININE 0.67 mg/dL (0.60-1.30); GLUCOSE 168.5 mg/dL (74-106); POTASSIUM 3.42 mmol/L (3.5-5.1); SODIUM 128.6 mmol/L (134.5-145)
[2024-05-03 05:23] LABS: BASOPHILS % (AUTO) 0.2 % (0.0-3.0); HEMATOCRIT 35.8 % (37.0-47.0); IMMATURE GRANULOCYTE % (AUTO) 0.7 % (0.0-5.0); LYMPHOCYTES # (AUTO) 0.4 K/uL (0.60-3.4); LYMPHOCYTES % (AUTO) 6.1 (10.0-50.0); MEAN CORPUSCULAR HGB CONC 33.5 (31.8-35.4); MEAN CORPUSCULAR VOLUME 86.5 fl (81.0-99.0); MONOCYTES % (AUTO) 17.1 (0-10); NEUTROPHILS # (AUTO) 4.6 K/ul (2.0-6.9); NEUTROPHILS % (AUTO) 75.9 % (42.2-75.2); PLATELET COUNT 124 10^3/uL (140-440); RDW COEFFICIENT OF VARIATION 13.9 % (11.6-14.8); RED BLOOD COUNT 4.14 10^6/ul (4.20-5.40); WHITE BLOOD COUNT 6.07 K/ul (4.6-10.2)
[2024-05-03 05:36] LABS: ALANINE AMINOTRANSFERASE 20.2 U/L (0-35); ALBUMIN 3.16 g/dL (3.5-5.0); ALKALINE PHOSPHATASE 92.2 U/L (53-141); ASPARTATE AMINO TRANSFERASE 39.1 U/L (14-36); BILIRUBIN,TOTAL 0.59 mg/dL (0.2-1.3); BLOOD UREA NITROGEN 11.8 mg/dL (7-17); CALCIUM 8.09 mg/dL (8.4-10.2); CHLORIDE 99.2 mmol/L (98-107); CREATININE 0.68 mg/dL (0.60-1.30); GLUCOSE 128.2 mg/dL (74-106); POTASSIUM 3.87 mmol/L (3.5-5.1); TOTAL PROTEIN 6.08 g/dL (6.3-8.2)
--- NOTE | 2024-05-03 09:59 | PCM.PROG ---
Date/Time Seen Date Seen by Provider: 05/03/24 Time Seen by Provider: 08:30 Provider Provider[facility] Chief Complaint Chief Complaint: COMPLICATED UTI, SYNCOPE Subjective Subjective: Patient is fatigued but answers questions more appropriately today. Follows commands easier today. Was able to feed herself toast this morning while yesterday she was being fed by others. Objective Appearance: Positive No Apparent Distress and Other (+oriented to person only, more interactive today ) Chest/Lungs: Positive Clear to Auscultation Bilaterally; Negative Rales, Rhonci or Wheezes Heart: Positive RRR GI/: Positive Soft, Nontender, Bowel Sounds Normal and No Distention Neurological: Positive Cranial Nerves Intact, Alert and Disorinted (more confused than her baseline ) Vital Signs Vital Signs: Vital Signs: Last 24 Hours 05/02/24 10:00 05/02/24 10:00 05/02/24 13:00 Temperature 98.8 F Temperature Source Temporal Artery Scan Pulse Rate 83 Respiratory Rate 18 Blood Pressure 122/76 Blood Pressure Mean 91 Blood Pressure Location Left Arm Blood Pressure Position O2 Sat by Pulse Oximetry 91 L Oxygen Delivery Method Room Air Room Air Telemetry Type Remote Telemetry Telemetry Monitoring Continues Telemetry Heart Rate 81 EKG MO Interval 0.14 EKG QRS Interval 0.06 Telemetry Strip Reading NSR 05/02/24 13:59 05/02/24 18:00 05/02/24 18:45 Temperature 98.6 F 99 F Temperature Source Temporal Artery Scan Temporal Artery Scan Pulse Rate 83 76 Respiratory Rate 22 H 19 Blood Pressure 123/71 102/56 L Blood Pressure Mean 88 71 Blood Pressure Location Left Arm Left Arm Blood Pressure Position O2 Sat by Pulse Oximetry 93 L 93 L Oxygen Delivery Method Room Air Room Air Telemetry Type Remote Telemetry Telemetry Monitoring Continues Telemetry Heart Rate 76 EKG MO Interval 0.15 EKG QRS Interval 0.07 Telemetry Strip Reading SR 05/02/24 20:00 05/02/24 20:16 05/03/24 00:57 Temperature 99 F Temperature Source Temporal Artery Scan Pulse Rate 79 Respiratory Rate 18 Blood Pressure 116/79 Blood Pressure Mean 91 Blood Pressure Location Right Arm Blood Pressure Position Supine O2 Sat by Pulse Oximetry 94 L Oxygen Delivery Method Room Air Room Air Telemetry Type Remote Telemetry Telemetry Monitoring Continues Telemetry Heart Rate 82 EKG MO Interval 0.16 EKG QRS Interval 0.07 Telemetry Strip Reading SR 05/03/24 01:51 05/03/24 02:00 05/03/24 05:06 Temperature 98.4 F Temperature Source Temporal Artery Scan Pulse Rate 87 Respiratory Rate 16 Blood Pressure 131/74 Blood Pressure Mean 93 Blood Pressure Location Left Arm Blood Pressure Position Supine O2 Sat by Pulse Oximetry 90 L Oxygen Delivery Method Room Air Room Air Room Air Telemetry Type Telemetry Monitoring Telemetry Heart Rate EKG MO Interval EKG QRS Interval Telemetry Strip Reading 05/03/24 07:00 Temperature Temperature Source Pulse Rate Respiratory Rate Blood Pressure Blood Pressure Mean Blood Pressure Location Blood Pressure Position O2 Sat by Pulse Oximetry Oxygen Delivery Method Telemetry Type Remote Telemetry Telemetry Monitoring Continues Telemetry Heart Rate 83 EKG MO Interval 0.15 EKG QRS Interval 0.08 Telemetry Strip Reading NSR Lab Results Lab Results: Lab Results: Last 24 Hours 05/03/24 05/02/24 05:05 20:00 WBC 6.07 RBC 4.14 L Hgb 12.0 Hct 35.8 L MCV 86.5 MCH 29.0 MCHC 33.5 RDW Coeff of Anh 13.9 Plt Count 124 L Immature Gran % (Auto) 0.7 Neut % (Auto) 75.9 H Lymph % (Auto) 6.1 L [place] % (Auto) 17.1 H Eos % (Auto) 0.0 Baso % (Auto) 0.2 Neut # (Auto) 4.6 Lymph # (Auto) 0.4 L [place] # (Auto) 1.0 Eos # (Auto) 0.0 Baso # (Auto) 0.0 Immature Gran # (Auto) 0.0 Sodium 131.0 L 128.6 L Potassium 3.87 3.42 L Chloride 99.2 97.8 L Carbon Dioxide 27.0 24.1 Anion Gap 8.67 10.12 BUN 11.8 13.9 Creatinine 0.68 0.67 Estimated GFR (MDRD) 82.00 83.00 BUN/Creatinine Ratio 17.35 20.74 Glucose 128.2 H 168.5 H Calcium 8.09 L 7.60 L Total Bilirubin 0.59 AST 39.1 H ALT 20.2 Alkaline Phosphatase 92.2 Total Protein 6.08 L Albumin 3.16 L Globulin 2.92 Albumin/Globulin Ratio 1.08 Additional Comments Additional Comments: I have independently reviewed and interpreted the labs/EKGs/imaging ordered during this hospital stay. I have reviewed outside records that are available in our EMR that pertain to medical stay including imaging/notes/labs from previous visits. Active Medications Active Medications: Medications Generic Name Dose Route Start Last Admin Trade Name Freq PRN Reason Stop Dose Admin Acetaminophen 650 mg 05/01/24 16:41 05/02/24 12:03 Acetaminophen 325 Mg Tablet PO 650 mg Q4H PRN Administration Mild Pain Bupropion HCl 150 mg 05/02/24 09:00 05/03/24 08:10 Bupropion Hcl 150 Mg Tab.Er.24h PO 150 mg DAILY [facility] Administration Carvedilol 6.25 mg 05/02/24 07:30 05/03/24 08:10 Carvedilol 6.25 Mg Tablet PO 6.25 mg DAILYWM2 [place] Administration Colestipol HCl 1 gm 05/01/24 21:00 05/03/24 08:09 Colestipol Hcl 1 Gm Tablet PO 1 gm BID [facility] Administration Docusate Sodium 100 mg 05/02/24 09:00 05/03/24 08:09 Docusate Sodium 100 Mg Capsule PO 100 mg DAILY [facility] Administration Donepezil HCl 5 mg 05/02/24 09:00 05/03/24 08:09 Donepezil Hcl 10 Mg Tablet PO 5 mg DAILY [facility] Administration Duloxetine HCl 60 mg 05/02/24 09:00 05/03/24 08:10 Duloxetine Hcl 30 Mg Capsule. PO 60 mg DAILY [facility] Administration Ferrous Sulfate 324 mg 05/02/24 10:00 05/03/24 08:10 Ferrous Sulfate 324 Mg Tablet. PO 324 mg DAILY [facility] Administration Ertapenem 1 gm/ Sodium 50 mls @ 100 mls/hr 05/02/24 09:00 05/03/24 08:08 Chloride IV 05/05/24 08:59 100 mls/hr DAILY [facility] Administration Insulin Human Lispro 0 unit 05/01/24 20:25 05/01/24 20:51 Insulin Lispro 100 Unit/Ml (10 Ml Vial) SUBCUT 2 unit PRN PRN Administration Hyperglycemia Protocol Isosorbide Mononitrate 30 mg 05/02/24 09:00 05/03/24 08:08 Isosorbide Mononitrate 30 Mg Tab.Er.24h PO 30 mg DAILY [facility] Administration Levothyroxine Sodium 75 mcg 05/02/24 06:00 05/03/24 05:12 Levothyroxine Sodium 75 Mcg Tablet PO 75 mcg QDAC2 [place] Administration Meclizine HCl 25 mg 05/01/24 16:43 Meclizine Hcl 25 Mg Tablet PO DAILY PRN Dizziness Ondansetron HCl 4 mg 05/01/24 16:41 Ondansetron Hcl/Pf 4 Mg/2 Ml Sdv IVP Q6H PRN Nausea / Vomiting Pantoprazole Sodium 40 mg 05/02/24 07:00 05/03/24 05:12 Pantoprazole Sodium 40 Mg Tablet.Dr PO 40 mg BIDAC2 [place] Administration Pioglitazone HCl 15 mg 05/02/24 09:00 05/03/24 08:09 Pioglitazone Hcl 15 Mg Tablet PO 15 mg DAILY [facility] Administration Quetiapine Fumarate 50 mg 05/01/24 21:00 05/02/24 20:24 Quetiapine Fumarate 25 Mg Tablet PO 50 mg BEDTIME [facility] Administration Simvastatin 40 mg 05/01/24 21:00 05/02/24 20:24 Simvastatin 40 Mg Tablet PO 40 mg BEDTIME [facility] Administration Sodium Chloride 1 syr 05/03/24 13:00 0.9% Sodium Chloride 10 Ml Disp.Syrin IVF Q8HR [facility] Sodium Chloride 1 syr 05/03/24 07:07 0.9% Sodium Chloride 10 Ml Disp.Syrin IVF PRN PRN Maintain IV Patency Sucralfate 1 gm 05/01/24 17:00 05/03/24 05:12 Sucralfate Susp 1 Gm/10 Ml Cup PO 1 gm Q6H [place] Administration Tramadol HCl 50 mg 05/01/24 21:00 05/03/24 08:09 Tramadol Hcl 50 Mg Tablet PO 50 mg BID [facility] Administration Plan Plan: 1. Syncope - No changes on EKG. Labs overall unremarkable except for mild electrolyte disturbances. Tele. Check echo. CT head negative. 2. Hypokalemia - Replaced 3. Hypomagnesemia, mild - Replaced 4. Resistant UTI due to ESBL positive E coli - From culture on 04/29. Treated outpt with macrobid. Continue with invanz. Contact precautions. 5. Acute metabolic encephalopathy due to UTI - Improved, still not yet at baseline. 6. Hyponatremia - Improved today, fluids stopped yesterday evening as it was worsening with hydration. Cont to hold hctz. 7. Hypothyroidism - Cont home meds, TSH normal 8. Hypertension - Cont home meds except triamterene/hctz 9. Dementia - Cont home meds 10. GERD - Cont home meds 11. DMT2 - Hold metformin. Diabetic diet. Accuchecks achs. Humalog ss. DVT Prophylaxis: Holding lovenox due to mildly low platelets Spoke with family yesterday, they would like for a referral to be sent to [facility]. Specifically spoke with MARLENI Hussein today and updated on plan of care. Review Statement Review Statement: I have personally discussed and reviewed the patient's visit/currently labs/imaging/decision making with Dr. Samson, my supervising attending. Greater that 50 minutes spent with patient, 50% of the time spent with this patient was devoted to counseling and coordination of care.
--- NOTE | 2024-05-03 12:52 | ECHO2D ---
Date of Exam: 05/03/2024 Ordering Physician: NEGRITA Room #: 112 Reason for Echo: SYNCOPE, HTN, DM2 M-Mode Normal Adult Results LV Dimensions Normal Adult Results AoV Opening excursions >1.6 >1.6 LVEDD-base- 3.5-5.8 5.4 Ao root dimensions 2.0-3.7 3.2 LVESD-base- 3.1-4.6 L. Atrium dimensions 1.9-3.8 5.3 Post. Wall thickness 0.8-1.1 1.3 IV septum (thickness) 0.7-1.2 1.4 Post. Wall excursion 0.72-1.3 NORMAL Septal motion NORMAL Systolic motion R. Ventricular cavity 1.5-2.0 4.0 LVEF 60% >60% Paradoxical septal wall motion NORMAL [] 2-D : 2-D M Mode Echocardiogram was performed using apical four chamber and left parasternal long and short axis views. Mitral, tricuspid and aortic valves appear to be normal. Contractility of the left ventricle seems to be normal, so is the cavity size. Enlarged Left atrial, right atrial and right ventricle cavities. Aortic root appears to be normal. There is no pericardial effusion. There is no thrombus noted in the left ventricle or left atrial cavity. M-MODE: MV: NORMAL AV: NORMAL TV: NORMAL PV: CHAMBER SIZE: ENLARGED LEFT ATRIAL, RIGHT ATRIAL AND RIGHT VENTRICLE CAVITIES WALL MOTION: NORMAL PERICARDIUM: NORMAL INTERPRETATION: 1. 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 ENLARGED RIGHT VENTRICLE AND RIGHT ATRIAL CAVITIES 3. NORMAL LEFT VENTRICLE SIZE AND LEFT VENTRICLE CONTRACTILITY 4. VALVES--NORMAL BY 2 "D" "M" [facility]
[2024-05-04 05:05] LABS: BASOPHILS % (AUTO) 0.2 % (0.0-3.0); EOSINOPHILS % (AUTO) 0.8 % (0.0-7.0); HEMATOCRIT 36.2 % (37.0-47.0); HEMOGLOBIN 11.8 g/dl (12.0-16.0); IMMATURE GRANULOCYTE % (AUTO) 0.6 % (0.0-5.0); LYMPHOCYTES # (AUTO) 0.7 K/uL (0.60-3.4); LYMPHOCYTES % (AUTO) 14.2 (10.0-50.0); MEAN CORPUSCULAR HEMOGLOBIN 28.6 pg (27.0-31.0); MEAN CORPUSCULAR HGB CONC 32.6 (31.8-35.4); MEAN CORPUSCULAR VOLUME 87.9 fl (81.0-99.0); MONOCYTES # (AUTO) 0.8 K/uL (0.4-2.0); MONOCYTES % (AUTO) 17.2 (0-10); NEUTROPHILS # (AUTO) 3.3 K/ul (2.0-6.9); PLATELET COUNT 133 10^3/uL (140-440); RDW COEFFICIENT OF VARIATION 14.3 % (11.6-14.8); RED BLOOD COUNT 4.12 10^6/ul (4.20-5.40); WHITE BLOOD COUNT 4.87 K/ul (4.6-10.2)
[2024-05-04 05:17] LABS: ALANINE AMINOTRANSFERASE 21.2 U/L (0-35); ALBUMIN 3.07 g/dL (3.5-5.0); ALKALINE PHOSPHATASE 101.8 U/L (53-141); ASPARTATE AMINO TRANSFERASE 41.6 U/L (14-36); BILIRUBIN,TOTAL 0.47 mg/dL (0.2-1.3); BLOOD UREA NITROGEN 15.2 mg/dL (7-17); CALCIUM 8.66 mg/dL (8.4-10.2); CARBON DIOXIDE 31.9 mmol/L (22-30.0); CHLORIDE 99.3 mmol/L (98-107); CREATININE 0.79 mg/dL (0.60-1.30); GLUCOSE 111.4 mg/dL (74-106); POTASSIUM 3.64 mmol/L (3.5-5.1); SODIUM 135.7 mmol/L (134.5-145); TOTAL PROTEIN 5.9 g/dL (6.3-8.2)
--- NOTE | 2024-05-04 08:57 | RS.PTINEVL ---
Subjective Patient information Date of Evaluation: 05/04/24 Date of Arrival on Unit: 04/29/24 Admitted From:: Home ([facility]) Diagnosis: UTI, weakness Usual Living Arrangement: Personal Care Facility Home Environment: Apartment and Level/No stairs Medical History: Hypertension, Diabetes and Arthritis Medical History Comments:: depression, hypothyroidism, vertigo LATEX ALLERGY?: No Surgical History: Knee Replacement (bilateral) and Hysterectomy Medications: see chart Subjective Information/ Patient Comments:: pt is very QAGAN TAY[place]. pt is alert to person only. pt states "I am soaking wet." (However pt was not wet.) Level of function Prior to this admission, the patient could do the following:: Independent Ambulation Abilities prior to this admission: pt amb with rolling walker at [facility]. pt is unable to answer how much assist she had with ADL's and personal care. Current Level of Function: Partially Dependent Current Equipment Used at Home: Rolling Walker Interventions Objective Patient Orientation: Person Current Interventions: IV's and Telemetry Range of Motion ROM Right Upper Extremity AROM: WFL's Left Upper Extremity AROM: WFL's Right Lower Extremity AROM: WFL's Left Lower Extremity AROM: WFL's Muscle Strength Muscle Strength Right Upper Extremity: Mild Weakness (grossly 4-/5) Left Upper Extremity: Mild Weakness (grossly 4-/5) Right Lower Extremity: Mild Weakness (hip flex 4-/5, knee flex 4/5, ext 4-/5, ankle 4/5) Left Lower Extremity: Mild Weakness (hip flex 4-/5, knee flex 4/5, ext 4-/5, ank le 4/5) Comments:: difficult to MMT due to pt only follows 50-60% of commands also limited due to QAGAN TAY[place] Sensation Sensation Right Upper Extremity: Intact/Normal Left Upper Extremity: Intact/Normal Right Lower Extremity: Intact/Normal Left Lower Extremity: Intact/Normal Palpation Palpation Findings: None/Normal Balance Sitting Balance and Reactions Static Sitting Balance: Fair Dynamic Sitting Balance: Fair (fair-) Standing Balance and Reactions Static Standing Balance: Poor Dynamic Standing Balance: Poor Standing Equilibrium Reactions: Delayed Left and Delayed Right Standing Protective Reactions: Delayed Left and Delayed Right Functional Mobility Bed Mobility Comments:: pt sitting up in bedside chair Transfers Sit to Stand: Min Assist, Mod Assist and 1 person assist Stand to Sit: Min Assist and 1 person assist Comments:: sit to stand from low recliner min to mod x 1 Safety Awareness Safety Awareness: Poor SUZY INDEX SCORE: n/a Ambulation Ambulation Assistive Device Used: Rolling Walker Orthotic/Prosthetic Device: No Distance: 80ft Assistance needed with Ambulation: Min Assist and 1 person assist Gait Deviations: Shuffling gait, Forward posture, Short stride and Deviates from path Ambulation Comments: pt tends to go to R and hit wall, does not appear to see obstacles on her R side. Factors Affecting Ambulation: Decreased Balance, Weakness, Decreased Coordination, Decreased Safety, Cognitive Status and Limited Endurance Treatment time Units charged Gait trainin Time with patient Length of Evaluation: 18 Total treatment time: 29 Patient Education Education Patient Education: Activity Modification and Education of Plan of Care Teaching Recipient: Patient Teaching Methods: Discussion Comments: attempted to discuss POC however pt very QAGAN TAY[place]. discussion with nursing regarding pt more alert today Assessment Assessment Problem List:: Decreased level of function, Requires training/education, Decreased safety/Risk of falls, Weakness and Cognitive status limits abilities Rehab Potential: Fair Further Therapy Indicated?: Yes Candidate for Swing Bed for Therapy Services?: Feel pt may be more appropriate for LTC setting due to cognitive deficits Evaluation Complexity: HISTORY: Medium, EXAM OF BODY SYSTEMS: Medium, CLINICAL PRESENTATION: Medium and CLINICAL DECISION MAKING: Medium Patient's Goal(s): pt unable to express. Short Term Goals GOAL #1: pt demonstrate rolling in bed w bedrails CGA Goal to be met by: 05/07/24 GOAL #2: Transfer sup to/from sit min x 1 Goal to be met by: 05/07/24 GOAL #3: Transfer sit to/from stand min x1 Goal to be met by: 05/07/24 GOAL #4: pt amb with rwx 100ft with min to CGA x 1 Goal to be met by: 05/07/24 GOAL #5: Improve BLE strength 4 to 4+/5 Goal to be met by: 05/08/24 Custodial Goals GOAL #1: pt trasnfer sup to/from sit to/from stand CGA Goal to be met by: 05/09/24 GOAL #2: pt amb functional household distances with CGA x 1 w rolling walker Goal to be met by: 05/09/24 GOAL #3: pt demonstrate rolling and scooting back on bed independently w bedrails Goal to be met by: 11/19/24 Plan Plan of Care: Therapeutic EX, Neuromuscular Re-Educ and Therapeutic Activity Other:: gait training Frequency of Treatment: 1-2 X day, as tolerated Duration of Treatment: 4-5 days Anticipated Discharge Destination: Custodial Care Facility Treatment Diagnosis (ICD 10 Codes): difficulty walking R 26.2 impaired balance R 26.81 weakness M62.81 fall risk Z91.81 Has the Physician been added for Co-signature?: Yes
--- NOTE | 2024-05-04 08:59 | PCM.PROG ---
Date/Time Seen Date Seen by Provider: 05/04/24 Time Seen by Provider: 08:30 Provider Provider: FORTINO JUARES PA-C, [facility] Chief Complaint Chief Complaint: COMPLICATED UTI, SYNCOPE Subjective Subjective: Patient is in the chair today, more alert and interactive, feeding herself breakfast. Oriented to person and [place], but unable to describe the hospital. She denies pain. States she's feeling better. Objective Appearance: Positive No Apparent Distress and Other (+oriented to person only, more interactive today ) Chest/Lungs: Positive Clear to Auscultation Bilaterally; Negative Rales, Rhonci or Wheezes Heart: Positive RRR GI/: Positive Soft, Nontender, Bowel Sounds Normal and No Distention Neurological: Positive Cranial Nerves Intact, Alert and Disorinted (more confused than her baseline but improving) Vital Signs Vital Signs: Vital Signs: Last 24 Hours 05/03/24 10:00 05/03/24 13:00 05/03/24 14:00 Temperature 98.9 F Temperature Source Temporal Artery Scan Pulse Rate 88 68 Respiratory Rate 18 18 Blood Pressure 128/72 111/64 Blood Pressure Mean 90 79 Blood Pressure Location Left Arm Left Arm Blood Pressure Position Supine Supine O2 Sat by Pulse Oximetry 91 L 93 L Oxygen Delivery Method Room Air Room Air Telemetry Type Remote Telemetry Telemetry Monitoring Continues Telemetry Heart Rate 70 EKG CA Interval 0.15 EKG QRS Interval 0.08 Telemetry Strip Reading NSR 05/03/24 18:00 05/03/24 19:00 05/03/24 20:00 Temperature 98.5 F Temperature Source Temporal Artery Scan Pulse Rate 72 Respiratory Rate 16 Blood Pressure 123/75 Blood Pressure Mean 91 Blood Pressure Location Left Arm Blood Pressure Position Sitting O2 Sat by Pulse Oximetry 94 L Oxygen Delivery Method Room Air Room Air Telemetry Type Remote Telemetry Telemetry Monitoring Continues Telemetry Heart Rate 71 EKG CA Interval 0.16 EKG QRS Interval 0.07 Telemetry Strip Reading SR 05/03/24 21:56 05/04/24 01:00 05/04/24 02:00 Temperature 97.8 F Temperature Source Temporal Artery Scan Pulse Rate 78 70 Respiratory Rate 16 16 Blood Pressure 141/80 H Blood Pressure Mean 100 Blood Pressure Location Left Arm Blood Pressure Position Supine O2 Sat by Pulse Oximetry 94 L Oxygen Delivery Method Room Air Room Air Telemetry Type Remote Telemetry Telemetry Monitoring Continues Telemetry Heart Rate 71 EKG CA Interval 0.16 EKG QRS Interval 0.07 Telemetry Strip Reading SR 05/04/24 05:12 05/04/24 07:00 Temperature 98.6 F Temperature Source Temporal Artery Scan Pulse Rate 77 Respiratory Rate 18 Blood Pressure 139/74 Blood Pressure Mean 95 Blood Pressure Location Left Arm Blood Pressure Position O2 Sat by Pulse Oximetry 92 L Oxygen Delivery Method Room Air Telemetry Type Remote Telemetry Telemetry Monitoring Continues Telemetry Heart Rate 75 EKG CA Interval 0.15 EKG QRS Interval 0.07 Telemetry Strip Reading NSR Lab Results Lab Results: Lab Results: Last 24 Hours 05/04/24 05:00 WBC 4.87 RBC 4.12 L Hgb 11.8 L Hct 36.2 L MCV 87.9 MCH 28.6 MCHC 32.6 RDW Coeff of Anh 14.3 Plt Count 133 L Immature Gran % (Auto) 0.6 Neut % (Auto) 67.0 Lymph % (Auto) 14.2 [place] % (Auto) 17.2 H Eos % (Auto) 0.8 Baso % (Auto) 0.2 Neut # (Auto) 3.3 Lymph # (Auto) 0.7 [place] # (Auto) 0.8 Eos # (Auto) 0.0 Baso # (Auto) 0.0 Immature Gran # (Auto) 0.0 Sodium 135.7 Potassium 3.64 Chloride 99.3 Carbon Dioxide 31.9 H Anion Gap 8.14 BUN 15.2 Creatinine 0.79 Estimated GFR (MDRD) 69.00 BUN/Creatinine Ratio 19.24 Glucose 111.4 H Calcium 8.66 Total Bilirubin 0.47 AST 41.6 H ALT 21.2 Alkaline Phosphatase 101.8 Total Protein 5.90 L Albumin 3.07 L Globulin 2.83 Albumin/Globulin Ratio 1.08 Additional Comments Additional Comments: I have independently reviewed and interpreted the labs/EKGs/imaging ordered during this hospital stay. I have reviewed outside records that are available in our EMR that pertain to medical stay including imaging/notes/labs from previous visits. Active Medications Active Medications: Medications Generic Name Dose Route Start Last Admin Trade Name Freq PRN Reason Stop Dose Admin Acetaminophen 650 mg 05/01/24 16:41 05/02/24 12:03 Acetaminophen 325 Mg Tablet PO 650 mg Q4H PRN Administration Mild Pain Bupropion HCl 150 mg 05/02/24 09:00 05/04/24 08:03 Bupropion Hcl 150 Mg Tab.Er.24h PO 150 mg DAILY [facility] Administration Carvedilol 6.25 mg 05/02/24 07:30 05/04/24 08:03 Carvedilol 6.25 Mg Tablet PO 6.25 mg DAILYWM2 [place] Administration Colestipol HCl 1 gm 05/01/24 21:00 05/04/24 08:03 Colestipol Hcl 1 Gm Tablet PO 1 gm BID [place] Administration Docusate Sodium 100 mg 05/02/24 09:00 05/04/24 08:02 Docusate Sodium 100 Mg Capsule PO 100 mg DAILY [place] Administration Donepezil HCl 5 mg 05/02/24 09:00 05/04/24 08:02 Donepezil Hcl 10 Mg Tablet PO 5 mg DAILY [place] Administration Duloxetine HCl 60 mg 05/02/24 09:00 05/04/24 08:02 Duloxetine Hcl 30 Mg Capsule. PO 60 mg DAILY [place] Administration Ferrous Sulfate 324 mg 05/02/24 10:00 05/04/24 08:03 Ferrous Sulfate 324 Mg Tablet. PO 324 mg DAILY [facility] Administration Ertapenem 1 gm/ Sodium 50 mls @ 100 mls/hr 05/02/24 09:00 05/04/24 08:01 Chloride IV 05/05/24 08:59 100 mls/hr DAILY [facility] Administration Insulin Human Lispro 0 unit 05/01/24 20:25 05/03/24 20:47 Insulin Lispro 100 Unit/Ml (10 Ml Vial) SUBCUT 2 unit PRN PRN Administration Hyperglycemia Protocol Isosorbide Mononitrate 30 mg 05/02/24 09:00 05/04/24 08:03 Isosorbide Mononitrate 30 Mg Tab.Er.24h PO 30 mg DAILY [place] Administration Levothyroxine Sodium 75 mcg 05/02/24 06:00 05/04/24 05:04 Levothyroxine Sodium 75 Mcg Tablet PO 75 mcg QDAC2 [place] Administration Meclizine HCl 25 mg 05/01/24 16:43 Meclizine Hcl 25 Mg Tablet PO DAILY PRN Dizziness Ondansetron HCl 4 mg 05/01/24 16:41 Ondansetron Hcl/Pf 4 Mg/2 Ml Sdv IVP Q6H PRN Nausea / Vomiting Pantoprazole Sodium 40 mg 05/02/24 07:00 05/04/24 05:05 Pantoprazole Sodium 40 Mg Tablet.Dr PO 40 mg BIDAC2 [place] Administration Pioglitazone HCl 15 mg 05/02/24 09:00 05/04/24 08:03 Pioglitazone Hcl 15 Mg Tablet PO 15 mg DAILY [place] Administration Quetiapine Fumarate 50 mg 05/01/24 21:00 05/03/24 20:35 Quetiapine Fumarate 25 Mg Tablet PO 50 mg BEDTIME [place] Administration Simvastatin 40 mg 05/01/24 21:00 05/03/24 20:35 Simvastatin 40 Mg Tablet PO 40 mg BEDTIME [place] Administration Sodium Chloride 1 syr 05/03/24 13:00 05/04/24 05:04 0.9% Sodium Chloride 10 Ml Disp.Syrin IVF 1 syr Q8HR [place] Administration Sodium Chloride 1 syr 05/03/24 07:07 0.9% Sodium Chloride 10 Ml Disp.Syrin IVF PRN PRN Maintain IV Patency Sucralfate 1 gm 05/01/24 17:00 05/04/24 05:05 Sucralfate Susp 1 Gm/10 Ml Cup PO 1 gm Q6H [place] Administration Tramadol HCl 50 mg 05/01/24 21:00 05/04/24 08:03 Tramadol Hcl 50 Mg Tablet PO 50 mg BID [place] Administration Plan Plan: 1. Syncope - No changes on EKG. Labs overall unremarkable except for mild electrolyte disturbances. Tele. Echo normal EF. CT head negative. 2. Hypokalemia - Replaced 3. Hypomagnesemia, mild - Replaced 4. Resistant UTI due to ESBL positive E coli - From culture on 04/29. Treated outpt with macrobid. Continue with invanz. Contact precautions. 5. Acute metabolic encephalopathy due to UTI - Improved, still not yet at baseline. 6. Hyponatremia - Improved today. Cont to hold hctz. 7. Hypothyroidism - Cont home meds, TSH normal 8. Hypertension - Cont home meds except triamterene/hctz 9. Dementia - Cont home meds 10. GERD - Cont home meds 11. DMT2 - Hold metformin. Diabetic diet. Accuchecks achs. Humalog ss. DVT Prophylaxis: Holding lovenox due to mildly low platelets Awaiting placement to [place], likely discharge tomorrow. Review Statement Review Statement: I have personally discussed and reviewed the patient's visit/currently labs/imaging/decision making with Dr. Samson, my supervising attending. Greater that 50 minutes spent with patient, 50% of the time spent with this patient was devoted to counseling and coordination of care.
--- NOTE | 2024-05-04 09:25 | RS.OTINEVL ---
Subjective Patient information Date of Evaluation: 05/04/24 Date of Arrival on Unit: 05/01/24 Admitted From:: Emergency Dept Diagnosis: complicated UTI, Syncope PRECAUTIONS: Fall risk Usual Living Arrangement: Personal Care Facility Living Arrangement Comments: Pt lives at [facility] and walked with a RW. Home Environment: Apartment Medical History Comments:: HARRIET, Subjective Information/ Patient Comments:: "I tried to be careful of that." (falling) Level of function Prior to this admission, the patient could do the following:: Independent Selfcare, Independent ADL's and Independent Ambulation Abilities prior to this admission: Pt is able to follow 50% of commands today. Pt hears out of Right ear better than the left. Pt is talking more today. Current Level of Function: Dependent Current Equipment Used at Home: Rolling Walker Interventions Objective Patient Orientation: Person (Pt oriented to self only.) Observation: Pt has full AROM of BUE. Strength is a 4-/5 of BUE. Interventions ROM Right Upper Extremity AROM: WFL's Left Upper Extremity AROM: WFL's Strength Right Upper Extremity: Mild Weakness Left Upper Extremity: Mild Weakness (4-/5.) Sensation Right Upper Extremity: Intact/Normal Left Upper Extremity: Intact/Normal Balance Sitting Balance Static Sitting Balance: Good Dynamic Sitting Balance: Good Standing Balance Static Standing Balance: Poor Dynamic Standing Balance: Poor ADL Skills Self Feeding Self Feeding: Independent Grooming Grooming: Mod Assist Grooming Set-up: Sitting Bathing Bathing UE: Mod Assist Bathing LE: Mod Assist Bathing Set-up: Shower Dressing Dressing UE: Min Assist Dressing LE: Max Assist Toilet Management Toilet Hygiene: Supervision Toilet Clothing Management: Supervision Functional Mobility Bed Mobility Scooting: Min Assist Transfers Sit to Stand: Min Assist, Mod Assist (Min to mod A for standing.) and 1 person assist Stand to Sit: Min Assist Stand Pivot Transfers: Mod Assist Ambulation Weight Bearing Status: FWB Assistive Device Used: Rolling Walker Assistance needed with Ambulation: Mod Assist (Pt requires verbal cues and tactile cues for turning the RW and changing directions.) Safety Awareness Safety Awareness: Poor SUZY INDEX SCORE: . Additional Treatment Performed Additional units charged ADL: 10 Time with patient Length of Evaluation: 17 Total treatment time: 27 Activities Patient Interests:: Visiting/Socializing Comments:: Pt continues to be confused and having difficulty following commands. Patient Education Patient Education: Education of Plan of Care Teaching Recipient: Patient Teaching Methods: Discussion and Demonstration Assessment Problem List:: Decreased level of function, Requires training/education, Decreased safety/Risk of falls, Weakness and Cognitive status limits abilities Rehab Potential: Fair Further Therapy Indicated?: Yes Evaluation Complexity: HISTORY: Medium, EXAM OF BODY SYSTEMS: Medium and CLINICAL DECISION MAKING: Medium Patient's Goal(s): To be able to go to a [facility] Facility. Short Term Goals Goals GOAL 1: Pt to increase BUE strength to 4/5. Goal to be met by: 05/11/24 GOAL 2: Pt to be I with personal hygiene. Goal to be met by: 05/11/24 GOAL 3: Pt to increase LE dressing to Min A. Goal to be met by: 05/11/24 Detention Goals GOAL 1: Pt to increase BUE strength to 4+/5. Goal to be met by: 05/12/24 GOAL 2: Pt to be Independent with dressing. Goal to be met by: 05/12/24 GOAL 3: Pt to be SBA with toileting. Goal to be met by: 05/12/24 Plan Plan of Care: Therapeutic EX, Neuromuscular Re-Educ, Therapeutic Activity and Self-Care/Home Management Frequency of Treatment: 1-2 X day, as tolerated Duration of Treatment: 1 Week Anticipated Discharge Destination: Detention Care Facility Treatment Diagnosis (ICD 10 Codes): Weakness R53.1, Z74.1 Need for assistance with personal care. Has the Physician been added for Co-signature?: Yes
[2024-05-05 05:03] LABS: BASOPHILS % (AUTO) 0.3 % (0.0-3.0); EOSINOPHILS # (AUTO) 0.1 K/ul (0.0-0.7); EOSINOPHILS % (AUTO) 1.7 % (0.0-7.0); HEMATOCRIT 36.3 % (37.0-47.0); HEMOGLOBIN 11.8 g/dl (12.0-16.0); IMMATURE GRANULOCYTE % (AUTO) 0.7 % (0.0-5.0); LYMPHOCYTES # (AUTO) 0.7 K/uL (0.60-3.4); LYMPHOCYTES % (AUTO) 21.8 (10.0-50.0); MEAN CORPUSCULAR HEMOGLOBIN 28.9 pg (27.0-31.0); MEAN CORPUSCULAR HGB CONC 32.5 (31.8-35.4); MEAN CORPUSCULAR VOLUME 88.8 fl (81.0-99.0); MONOCYTES # (AUTO) 0.6 K/uL (0.4-2.0); MONOCYTES % (AUTO) 18.5 (0-10); NEUTROPHILS # (AUTO) 1.7 K/ul (2.0-6.9); PLATELET COUNT 164 10^3/uL (140-440); RDW COEFFICIENT OF VARIATION 14.7 % (11.6-14.8); RED BLOOD COUNT 4.09 10^6/ul (4.20-5.40); WHITE BLOOD COUNT 2.98 K/ul (4.6-10.2)
[2024-05-05 05:15] LABS: ALBUMIN 3.14 g/dL (3.5-5.0); ALKALINE PHOSPHATASE 111.5 U/L (53-141); ASPARTATE AMINO TRANSFERASE 44.4 U/L (14-36); BILIRUBIN,TOTAL 0.35 mg/dL (0.2-1.3); BLOOD UREA NITROGEN 15.2 mg/dL (7-17); CALCIUM 8.61 mg/dL (8.4-10.2); CARBON DIOXIDE 32.3 mmol/L (22-30.0); CHLORIDE 102.2 mmol/L (98-107); CREATININE 0.74 mg/dL (0.60-1.30); POTASSIUM 3.35 mmol/L (3.5-5.1); SODIUM 139.7 mmol/L (134.5-145); TOTAL PROTEIN 6.03 g/dL (6.3-8.2)
--- NOTE | 2024-05-05 08:35 | DCSUM ---
Admission Date Admission Date: 05/01/24 Discharge Date Discharge Date: 05/05/24 Admission Diagnosis Admission Diagnosis: 1. Syncope Discharge Diagnosis Discharge Diagnosis: 1. Syncope 2. Hypokalemia - Replaced 3. Hypomagnesemia, mild - Replaced 4. 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 Acute metabolic encephalopathy due to UTI - Improved 6. Hyponatremia - resolved 7. Hypothyroidism 8. Hypertension 9. Dementia 10. GERD 11. DMT2 Hospital Provider Hospital Provider: FORTINO JUARES PA-C, [facility] Primary Care Physician Primary Care Physician: ASHTYN BERNAL Summary of History and Physical Summary of History and Physical: Patient is a 88 year old from [facility] with pmhx of hypertension, dementia, CABG, hypothyroidism, GERD, hyperlipidemia who presented for witnessed syncopal episode. No seizurelike activity reported. She was assisted down to the floor and did not obtain any injuries reportedly. No n/v, incontinence noted. Patient was seen in the ER on 04/29 and diagnosed with UTI, discharged home on macrobid. Patient has many allergies to antibiotics. In the ER this visit patient's cxr and ct head were unremarkable. Labs revealed low potassium and sodium. Urine culture from recent visit was still pending but growing gram negative organisms. Patient admitted to [facility] for syncope, UTI. Patient's urine culture from 04/29 resulted today in ESBL positive e coli. She is oriented to self only. She was able to eat some breakfast today. Per nursing report, family is requesting long-term placement. ROS limited due to patient's dementia. Hospital Course Subjective: Echo with preserved EF, valves normal. No arrhythmias noted on tele. Patient has not had any episodes of syncope or endorsed symptoms such as dizziness, etc. She has worked with therapy and is weak. Initially patient was very confused and lethargic. UC came back ESBL + e coli. Treated with invanz. Her mentation has improved. She is more alert, feeding herself, participating with therapy but is still confused to situation. Family does not want patient to return to her assisted living and requested placement to [place]. She has been accepted and will be going there today in stable condition. She will need Invanz 1 gm IM daily starting tomorrow 05/06, last dose 05/11 to complete 10 total days. Of note, her triamterene/hctz was held due to low sodium. Her BP has been normal. Will discontinue it on discharge. Appearance: No Apparent Distress, Alert and Other (+alert, oriented to person, knows she's in [place]. ) HEENT: MMM and Supple CVS: Other (RRR) Abdomen: Soft, Non-Tender and No Distention Respiratory: No Accessory Muscle Use Extremities: No Edema Vital Signs: Most Recent Vital Signs Temperature 96.7 F L 05/05/24 05:06 Temperature Source Temporal Artery Scan 05/05/24 05:06 Temperature Source Infrared 05/01/24 13:12 Pulse Rate 77 05/05/24 05:06 Respiratory Rate 14 05/05/24 05:06 Blood Pressure 126/68 05/05/24 05:06 Blood Pressure Mean 87 05/05/24 05:06 Blood Pressure Right Arm 130/60 05/01/24 15:18 Blood Pressure Location Left Arm 05/05/24 05:06 Blood Pressure Position Supine 05/05/24 05:06 O2 Sat by Pulse Oximetry 93 L 05/05/24 05:06 Oxygen Delivery Method Room Air 05/05/24 05:06 Height 5 ft 3 in 05/01/24 15:18 Weight 64 kg 05/01/24 15:18 Telemetry Type Remote Telemetry 05/05/24 07:00 Telemetry Monitoring Continues 05/05/24 07:00 Telemetry Heart Rate 80 05/05/24 07:00 EKG TX Interval 0.15 05/05/24 07:00 EKG QRS Interval 0.07 05/05/24 07:00 Telemetry Strip Reading NSR 05/05/24 07:00 Imaging: EXAMINATION: HEAD CT WITHOUT CONTRAST HISTORY: Syncope TECHNIQUE: Noncontrast CT of the brain was performed with images acquired from skull base to vertex. Sagittal and coronal reformatted images were provided. CT dose reduction techniques performed: Yes. COMPARISON: CT head 10/29/2023 FINDINGS:No hemorrhage, mass, or acute infarction. No skull fracture.Chronic microvascular disease and brain atrophy. Paranasal sinuses and mastoid air cells clear. IMPRESSION: No acute intracranial abnormality. EXAM: CHEST RADIOGRAPH TECHNIQUE: Single frontal chest radiograph. HISTORY: Syncope. COMPARISON: 10/29/2023. FINDINGS: Lungs/Pleura: Slight interstitial prominence. Mild streaky markings in the left lung base may be due to scarring or atelectasis. No sizable effusion or focal infiltrate. Heart: The heart size is normal. Bones: Bones are osteopenic. Other: Median sternotomy. Note is again made of breakage of the upper 2 wires. Cholecystectomy. IMPRESSION: 1. Chronic changes. Lab Results Last 24 Hours: 05/05/24 04:57 WBC 2.98 L RBC 4.09 L Hgb 11.8 L Hct 36.3 L MCV 88.8 MCH 28.9 MCHC 32.5 RDW Coeff of Anh 14.7 Plt Count 164 Immature Gran % (Auto) 0.7 Neut % (Auto) 57.0 Lymph % (Auto) 21.8 [place] % (Auto) 18.5 H Eos % (Auto) 1.7 Baso % (Auto) 0.3 Neut # (Auto) 1.7 L Lymph # (Auto) 0.7 [place] # (Auto) 0.6 Eos # (Auto) 0.1 Baso # (Auto) 0.0 Immature Gran # (Auto) 0.0 Sodium 139.7 Potassium 3.35 L Chloride 102.2 Carbon Dioxide 32.3 H Anion Gap 8.55 BUN 15.2 Creatinine 0.74 Estimated GFR (MDRD) 74.00 BUN/Creatinine Ratio 20.54 Glucose 141.0 H Calcium 8.61 Total Bilirubin 0.35 AST 44.4 H ALT 25.0 Alkaline Phosphatase 111.5 Total Protein 6.03 L Albumin 3.14 L Globulin 2.89 Albumin/Globulin Ratio 1.08 Discharge Instructions Discharge Planning: Discharge Planning > [address] Jamal Samson. Discharge Medications: Medications at Discharge (Home Meds & RX) Discharge Plan Discharge Discharge Orders: Discharge Patient (ONCE); Ordered 05/05/24 Ordered By: FORTINO JUARES Activity Restrictions/Additional Instructions: DISCHARGE SNF DX: SYNCOPE, UTI DUE TO ESBL + E COLI DIET: HEART HEALTHY ACTIVITY: TOLERATED, FALL PRECAUTIONS, PTOT INVANZ 1 GM STARTING 05/06, LAST DOSE 05/11. Instructions: Urinary Tract Infection in Older Adults (DC) Patient Disposition: TRANSFER SNF Prescriptions: New pioglitazone [Actos] 15 mg Tablet 15 mg PO DAILY Qty: 1 0RF Rx Instructions: not a new medication ertapenem 1 gram recon soln 1 g IM DAILY 6 Days Qty: 6 0RF Rx Instructions: start 05/06, last dose on 11/21. Continued isosorbide mononitrate 30 MG tablet extended release 24 hr 30 mg PO DAILY simvastatin 40 MG tablet 40 mg PO BEDTIME levothyroxine [Synthroid] 75 MCG tablet 75 mcg PO QDAC duloxetine [Cymbalta] 60 MG capsule,delayed release(DR/EC) 60 mg PO DAILY bupropion HCl 150 mg tablet extended release 24 hr 150 mg PO DAILY sucralfate 100 mg/mL suspension 10 ml PO Q6H PRN (Reason: indigestion) ferrous sulfate 325 mg (65 mg iron) tablet 325 mg PO DAILY fluticasone propionate [24 Hour Allergy Relief] 50 mcg/actuation spray,suspension 2 spray intranasal ONCE Rx Instructions: administer into each nostril alendronate [Fosamax] 70 mg tablet 70 mg PO WEEKLY pantoprazole 40 mg tablet,delayed release (DR/EC) 40 mg PO BID carvedilol 6.25 mg tablet 6.25 mg PO ONCE Rx Instructions: must administer with a meal/food colestipol [Colestid] 1 gram tablet 1 g PO BID potassium chloride 10 mEq tablet extended release 10 meq PO DAILY tramadol 50 mg tablet 50 mg PO BID quetiapine 50 mg tablet 50 mg PO BEDTIME acetaminophen [Tylenol Extra Strength] 500 mg tablet 1,000 mg PO TID PRN (Reason: pain) Clearcanal Earwax Softener 6.5 % drops 5 drp BOTHEARS DAILY PRN (Reason: wax ) Daily Fiber (psyllium-aspart) 3.4 gram powder in packet 1 packet PO DAILY docusate sodium [Col-Rite] 100 mg capsule 100 mg PO DAILY meclizine 25 mg tablet 25 mg PO DAILY PRN (Reason: dizziness) Qty: 30 1RF metformin 500 mg tablet 500 mg PO 2XD donepezil [Aricept] 5 mg tablet 5 mg PO QDAY Discontinued triamterene-hydrochlorothiazid 1 CAP capsule 1 cap PO DAILY nitrofurantoin monohyd/m-cryst [Macrobid] 100 mg capsule 100 mg PO BID Qty: 14 0RF Rx Instructions: must administer with a meal/food Did you review [place] for ALL controlled substances?: Not Applicable Discussed opioids are addictive and Narcan is available by prescription or from pharmacy.: No Condition: Stable
[2024-05-05 10:05] VITALS: BP 106/72; PULSE 80; RESP 20; TEMP 97.6
[2024-05-05] MEDS: K-DUR PO ONE (11:25)
[2024-05-05] MEDS: K-DUR ONE (11:26)
== END 2024-05-05 14:08 | DRG 312 ==
LOC: MEDSURG B 13:10 → ED 13:10 → MEDSURG B 15:14
PROVIDERS: ADMIT Hospitalist; ATTEND Physician Assistant